=== PATIENT | male | born 1935 | race Caucasian/White ===

== ENCOUNTER 2018-09-26 12:28 | Inpatient (IN) | payer BC ==
[2018-09-26 13:34] LABS: MODE NASAL CANNULA; MetHgb Venous 0.5 %; Sample Type Blood venous; Site VENOUS LINE; Venous Fraction OxyHgb 69.2 %; Venous Oxygen Sat 70.3 mmHG (55.0-75.0); Venous Total Hemglobin 13.9 g/dl
[2018-09-26 13:36] LABS: ADD MAN DIFF? NO
[2018-09-26 13:41] LABS: ABNORMAL IP MESSAGE 1; BASOPHILS % 0.1 % (0.0-2.0); HEMATOCRIT 38.8 % (42.0-52.0); HEMOGLOBIN 12.4 g/dl (14.0-18.0); LYMPHOCYTES # 0.3 10^3/ul (0.8-2.9); LYMPHOCYTES % 2.4 % (15.0-51.0); MEAN CORPUSCULAR HEMOGLOBIN 26.6 pg (29.0-33.0); MEAN CORPUSCULAR VOLUME 83.3 fl (82.0-101.0); MEAN PLATELET VOLUME 9.8 fl (7.4-10.4); MONOCYTE # 0.2 10^3/ul (0.3-0.9); MONOCYTES % 1.2 % (0.0-11.0); NEUTROPHIL # 13.7 10^3/ul (1.6-7.5); NEUTROPHILS % 95.6 % (39.0-77.0); NUCLEATED RED BLOOD CELLS% 0.1 /100WBC (0.0-0.0); PLATELET COUNT 366 10^3/UL (140-415); POSITIVE DIFF @See below; RED BLOOD COUNT 4.66 10^6/ul (4.70-6.10); RED CELL DISTRIBUTION WIDTH 15.3 % (11.5-14.5)
[2018-09-26 13:41] LABS: WHITE BLOOD COUNT 14.4 10^3/ul (4.8-10.8)
[2018-09-26 13:54] LABS: ANION GAP 12 (5-13); BLOOD UREA NITROGEN 46 mg/dl (7-20); CALCIUM 8.6 mg/dl (8.4-10.2); CARBON DIOXIDE 20 mmol/L (21-31); CHLORIDE 94 mmol/L (97-110); CREATININE 1.98 mg/dl (0.61-1.24); GLUCOSE 217 mg/dl (70-220); POTASSIUM 5.5 mmol/L (3.5-5.1); SODIUM 126 mmol/L (135-144)
[2018-09-26 13:56] LABS: INR 0.99; PROTIME 13.2 Sec (11.9-14.9)
[2018-09-26 13:57] LABS: PARTIAL THROMBOPLASTIN TIME 29.2 Sec (23.0-35.0)
[2018-09-26 14:06] LABS: B-TYPE NATRIURETIC PEPTIDE 2870 PG/ML (0-450); TROPONIN-I 0.035 ng/ml (0.000-0.120)
[2018-09-26] MEDS: LEVOFLOXACIN 750MG/D5W (PMX) 150 ML IVPB (15:04)
[2018-09-26] MEDS: ALBUTEROL 0.5% (NEB) 2.5 MG/0.5 ML AMP INH (15:47)
[2018-09-26] MEDS: IPRATROPIUM (NEB) 0.5 MG/2.5 ML AMP INH (15:48)
[2018-09-26] MEDS ORDERED: ONDANSETRON 4 MG INJ IV ×2 (16:00→18:30)
[2018-09-26] MEDS ORDERED: ACETAMINOPHEN 325 MG TAB PO ×2 (16:00→18:30)
[2018-09-26] MEDS ORDERED: BISACODYL (EC) 5 MG TAB PO (18:30)
[2018-09-26] MEDS ORDERED: DOCUSATE SODIUM 100 MG CAP PO (18:30)
[2018-09-26] MEDS ORDERED: morphine 2 MG INJ IV (18:30)
[2018-09-26] MEDS ORDERED: NACL 0.9% 3 ML SYG IV (18:30)
[2018-09-26] MEDS ORDERED: VANCOMYCIN IV PER PHARMACY XX ×2 (19:00→20:30)
[2018-09-26] MEDS ORDERED: GUAIFENESIN/DM 5ML CUP PO ×2 (19:00→20:30)
[2018-09-26] MEDS: HYDROCODONE/APAP (5/325) TAB PO (19:12)
[2018-09-26] MEDS: MAGNESIUM SULFATE 2 GM/50 ML 50 ML IVPB (20:30)
[2018-09-26] MEDS ORDERED: CEFTRIAXONE 2 GM/50 ML (PMX) 50 ML IVPB (20:30)
[2018-09-26] MEDS: ALBUTEROL/IPRATROPIUM (NEB) 3 ML AMP HHN (20:30)
[2018-09-26] MEDS ORDERED: DEXTROSE 50% 50 ML SYRINGE IV ×2 (21:00)
[2018-09-26] MEDS: INSULIN ASPART [NOVOLOG] 3 ML PEN SC (21:00)
[2018-09-26] MEDS ORDERED: GLUCAGON 1 MG INJ IM (21:00)
[2018-09-26] MEDS ORDERED: GLUCOSE GEL 15 GRAM TUBE PO ×2 (21:00)
[2018-09-26] MEDS ORDERED: GLUCOSE GEL 15 GRAM TUBE BUCCAL (21:00)
[2018-09-26 21:32] LABS: URIC ACID 7.5 mg/dl (3.1-7.9)
[2018-09-26] MEDS: METHYLPREDNISOLONE 40 MG INJ IM (22:38)
[2018-09-26] MEDS: ATORVASTATIN 80 MG TAB PO (22:39)
[2018-09-26] MEDS: FAMOTIDINE 20 MG TAB PO (22:39)
[2018-09-26] MEDS: VANCOMYCIN 1.25 GM IN 0.9 % SOD CHLORIDE 250 ML IVPB (22:39)
[2018-09-26] MEDS: SOD CHLORIDE 0.9% 1,000 ML IV (22:39)
[2018-09-26] MEDS: METOPROLOL 25 MG TAB PO (22:40)
[2018-09-26 22:42] LABS: OSMOLALITY 282 mOsm/kg (280-295)
[2018-09-26] MEDS ORDERED: AZTREONAM 2 GM in SOD CHLORIDE 0.9% 100 ML IVPB (23:00)
[2018-09-26] MEDS ORDERED: ALBUTEROL/IPRATROPIUM (NEB) 3 ML AMP HHN (23:00)
[2018-09-26] MEDS: IPRATROPIUM (NEB) 0.5 MG/2.5 ML AMP HHN (23:43)
[2018-09-27] MEDS ORDERED: AZTREONAM 2 GM in SOD CHLORIDE 0.9% 100 ML IVPB
[2018-09-27 01:14] LABS: PROCALCITONIN 0.75 ng/mL (0.00-0.10)
[2018-09-27] MEDS: NPH, HUMAN INSULIN ISOPHANE 3ML VIAL SC (01:48)
[2018-09-27] MEDS: ACCU-CHEK XX (02:00)
[2018-09-27] MEDS: SOD CHLORIDE 0.9% 1,000 ML IV (04:31)
[2018-09-27] MEDS: ZOLPIDEM 5 MG TAB PO ×2 (05:39→22:40)
[2018-09-27] MEDS: METHYLPREDNISOLONE 125 MG INJ IV (06:03)
[2018-09-27] MEDS: INSULIN ASPART [NOVOLOG] 3 ML PEN SC ×7 (06:26→21:00)
[2018-09-27 07:03] LABS: ADD MAN DIFF? NO
[2018-09-27 07:06] LABS: WHITE BLOOD COUNT 17.6 10^3/ul (4.8-10.8)
[2018-09-27 07:06] LABS: ABNORMAL IP MESSAGE 1; BASOPHILS % 0.1 % (0.0-2.0); HEMATOCRIT 35.5 % (42.0-52.0); HEMOGLOBIN 11.4 g/dl (14.0-18.0); LYMPHOCYTES # 0.4 10^3/ul (0.8-2.9); LYMPHOCYTES % 2.1 % (15.0-51.0); MEAN CORPUSCULAR HEMOGLOBIN 26.3 pg (29.0-33.0); MEAN CORPUSCULAR HGB CONC 32.1 g/dl (32.0-37.0); MEAN PLATELET VOLUME 9.4 fl (7.4-10.4); MONOCYTE # 0.5 10^3/ul (0.3-0.9); MONOCYTES % 2.8 % (0.0-11.0); NEUTROPHIL # 16.6 10^3/ul (1.6-7.5); NEUTROPHILS % 94.4 % (39.0-77.0); PLATELET COUNT 354 10^3/UL (140-415); POSITIVE DIFF @See below; RED BLOOD COUNT 4.33 10^6/ul (4.70-6.10); RED CELL DISTRIBUTION WIDTH 14.8 % (11.5-14.5)
[2018-09-27 07:26] LABS: HEMOGLOBIN A1C 6.4 % (0-5.9)
[2018-09-27 07:32] LABS: ALANINE AMINOTRANSFERASE 29 IU/L (13-69); ALBUMIN 2.8 g/dl (3.3-4.9); ALBUMIN/GLOBULIN RATIO 0.93; ALKALINE PHOSPHATASE 54 IU/L (42-121); ANION GAP 8 (5-13); ASPARTATE AMINO TRANSFERASE 20 IU/L (15-46); BILIRUBIN,INDIRECT 0.5 mg/dl (0-1.1); BILIRUBIN,TOTAL 0.5 mg/dl (0.2-1.3); BLOOD UREA NITROGEN 45 mg/dl (7-20); CARBON DIOXIDE 20 mmol/L (21-31); CHLORIDE 100 mmol/L (97-110); CREATININE 1.67 mg/dl (0.61-1.24); GLUCOSE 183 mg/dl (70-220); MAGNESIUM 2.6 mg/dl (1.7-2.5); PHOSPHORUS 3.6 mg/dl (2.5-4.9); POTASSIUM 5.1 mmol/L (3.5-5.1); SODIUM 128 mmol/L (135-144); TOTAL PROTEIN 5.8 g/dl (6.1-8.1)
[2018-09-27 07:37] LABS: TROPONIN-I 0.044 ng/ml (0.000-0.120)
[2018-09-27] MEDS ORDERED: predniSONE 50 MG TAB PO (09:00)
[2018-09-27] MEDS: ENOXAPARIN 30 MG/0.3 ML SYG SC (09:00)
[2018-09-27] MEDS ORDERED: CEFTRIAXONE 2 GM/50 ML (PMX) 50 ML IVPB (09:00)
[2018-09-27] MEDS: CLOPIDOGREL 75 MG TAB PO (09:22)
[2018-09-27] MEDS: AZTREONAM 1 GM/NS (PMX) 50 ML IVPB ×3 (09:22→21:16)
[2018-09-27] MEDS: TAMSULOSIN (SR) 0.4 MG CAP PO (09:23)
[2018-09-27] MEDS: METOPROLOL 25 MG TAB PO ×2 (09:24→21:00)
[2018-09-27] MEDS: IPRATROPIUM (NEB) 0.5 MG/2.5 ML AMP HHN ×2 (09:37→14:40)
[2018-09-27 10:23] LABS: OSMOLALITY,URINE 455 mOsm/kg (250-1200)
[2018-09-27] MEDS: FUROSEMIDE 40 MG INJ IV (12:45)
[2018-09-27] MEDS ORDERED: METHYLPREDNISOLONE 40 MG INJ IV (14:00)
[2018-09-27] MEDS: ALBUTEROL/IPRATROPIUM (NEB) 3 ML AMP HHN ×3 (14:40→20:32)
[2018-09-27] MEDS: METHYLPREDNISOLONE 40 MG INJ IV (14:46)
[2018-09-27] MEDS: AMLODIPINE 10 MG TAB PO (14:47)
[2018-09-27] MEDS: AZITHROMYCIN 500MG/NS (PMX) 250 ML IVPB (14:47)
[2018-09-27] MEDS: hydrALAzine 20 MG INJ IV (16:17)
[2018-09-27] MEDS: FAMOTIDINE 20 MG TAB PO (21:00)
[2018-09-27] MEDS: ATORVASTATIN 80 MG TAB PO (21:00)
[2018-09-27] MEDS: INSULIN GLARGINE [LANTus] (100 UNITS/ML) SYG SC (21:44)
[2018-09-27] MEDS: INSULIN ASP PROT/ASPART (70/30) PEN SC (21:45)
[2018-09-28] MEDS: ALBUTEROL/IPRATROPIUM (NEB) 3 ML AMP HHN ×5 (00:33→16:09)
[2018-09-28] MEDS: ACCU-CHEK XX (02:00)
[2018-09-28] MEDS: METHYLPREDNISOLONE 40 MG INJ IV ×2 (02:32→13:24)
[2018-09-28 07:16] LABS: ADD MAN DIFF? NO
[2018-09-28 07:23] LABS: WHITE BLOOD COUNT 16.3 10^3/ul (4.8-10.8)
[2018-09-28 07:23] LABS: ABNORMAL IP MESSAGE 1; BASOPHILS % 0.1 % (0.0-2.0); HEMATOCRIT 38.7 % (42.0-52.0); HEMOGLOBIN 12.5 g/dl (14.0-18.0); LYMPHOCYTES # 0.4 10^3/ul (0.8-2.9); LYMPHOCYTES % 2.4 % (15.0-51.0); MEAN CORPUSCULAR HEMOGLOBIN 26.5 pg (29.0-33.0); MEAN CORPUSCULAR HGB CONC 32.3 g/dl (32.0-37.0); MEAN PLATELET VOLUME 9.2 fl (7.4-10.4); MONOCYTE # 0.7 10^3/ul (0.3-0.9); MONOCYTES % 4.4 % (0.0-11.0); NEUTROPHILS % 92.3 % (39.0-77.0); NUCLEATED RED BLOOD CELLS # 0.1 10^3/ul (0.0-0.0); NUCLEATED RED BLOOD CELLS% 0.4 /100WBC (0.0-0.0); PLATELET COUNT 461 10^3/UL (140-415); POSITIVE DIFF @See below; RED BLOOD COUNT 4.72 10^6/ul (4.70-6.10); RED CELL DISTRIBUTION WIDTH 15.3 % (11.5-14.5)
[2018-09-28 07:42] LABS: ANION GAP 14 (5-13); BLOOD UREA NITROGEN 44 mg/dl (7-20); CALCIUM 8.6 mg/dl (8.4-10.2); CARBON DIOXIDE 22 mmol/L (21-31); CHLORIDE 94 mmol/L (97-110); GLUCOSE 187 mg/dl (70-220); MAGNESIUM 2.3 mg/dl (1.7-2.5); POTASSIUM 4.6 mmol/L (3.5-5.1); SODIUM 130 mmol/L (135-144)
[2018-09-28] MEDS: INSULIN ASPART [NOVOLOG] 3 ML PEN SC ×4 (07:48→11:52)
[2018-09-28] MEDS: INSULIN ASP PROT/ASPART (70/30) PEN SC (08:03)
[2018-09-28] MEDS: AZTREONAM 1 GM/NS (PMX) 50 ML IVPB (08:12)
[2018-09-28] MEDS: CLOPIDOGREL 75 MG TAB PO (08:12)
[2018-09-28] MEDS: METOPROLOL 25 MG TAB PO (08:13)
[2018-09-28] MEDS: TAMSULOSIN (SR) 0.4 MG CAP PO (08:13)
[2018-09-28] MEDS: AMLODIPINE 10 MG TAB PO (08:13)
[2018-09-28] MEDS: ENOXAPARIN 30 MG/0.3 ML SYG SC (08:23)
[2018-09-28] MEDS: IPRATROPIUM (NEB) 0.5 MG/2.5 ML AMP HHN ×2 (08:50)
[2018-09-28 10:23] LABS: AADO2 Arterial 84.1 mmHg (7.0-24.0); Allen Test ACCEPTAB; Arterial Base Excess -4.7 mmol/L (-3.0-3); Arterial Blood Gas Oxygen Sat 95.8 mmHG (95.0-100.0); Arterial COHb 0.3 % (0.0-3.0); Arterial Fraction of Oxyhgb 95.1 % (93.0-99.0); Arterial HCO3 18.3 mmol/L (22.0-26.0); Arterial MetHb 0.4 % (0.0-1.5); Arterial pCO2 28.1 mmhg (35-45); MODE NASAL CANNULA; Site Left Radial
[2018-09-28] MEDS: AZITHROMYCIN 500MG/NS (PMX) 250 ML IVPB (13:24)
[2018-09-28 16:36] LABS: ADD UMIC YES; UR ASCORBIC ACID NEGATIVE (NEGATIVE); UR BILIRUBIN (Dip) NEGATIVE (NEGATIVE); UR BLOOD (Dip) NEGATIVE (NEGATIVE); UR CLARITY CLEAR (CLEAR); UR COLOR YELLOW (YELLOW); UR GLUCOSE (Dip) 1+ mg/dL (NEGATIVE); UR KETONES (Dip) NEGATIVE (NEGATIVE); UR LEUKOCYTE ESTERASE (Dip) NEGATIVE Leu/ul (NEGATIVE); UR NITRITE (Dip) NEGATIVE (NEGATIVE); UR RBC 0 /HPF (0-5); UR SPECIFIC GRAVITY (Dip) 1.014 (1.003-1.030); UR TOTAL PROTEIN (Dip) 2+ mg/dl (NEGATIVE); UR UROBILINOGEN (Dip) NEGATIVE (NEGATIVE); UR WBC 1 /HPF (0-5)
[2018-09-28 16:42] LABS: CREATININE,URINE RANDOM 66.16 mg/dl (20-370)
[2018-09-28 16:42] LABS: SODIUM,URINE RANDOM 36 mmol/L (30-90)
[2018-09-28 16:50] LABS: OSMOLALITY,URINE 472 mOsm/kg (250-1200)
[2018-09-30 15:32] LABS: CREATININE, RANDOM URINE 71 mg/dL (20-320); MICROALBUMIN 26.4 mg/dL; MICROALBUMIN/CREATININE RATIO 372 (<30)
== END 2018-09-28 16:52 | disposition home health service (06) | DRG 871 ==
LOC: E/R 12:28 → 6WM 15:31 → TEL 20:30
PROC: 3E0F7GC Introduction of Other Therapeutic Substance into Respiratory Tract, Via Natural or Artificial Opening (ICD-10-PCS; principal; 2018-09-26)
DX: A41.9 Sepsis, unspecified organism (principal); J18.9 Pneumonia, unspecified organism; J96.01 Acute respiratory failure with hypoxia; N17.9 Acute kidney failure, unspecified; E22.2 Syndrome of inappropriate secretion of antidiuretic hormone; I13.0 Hypertensive heart and chronic kidney disease with heart failure and stage 1 through stage 4 chronic kidney disease, or unspecified chronic kidney disease; J44.1 Chronic obstructive pulmonary disease with (acute) exacerbation; E11.65 Type 2 diabetes mellitus with hyperglycemia; E88.81 Metabolic syndrome and other insulin resistance; I50.9 Heart failure, unspecified; E87.5 Hyperkalemia; D50.9 Iron deficiency anemia, unspecified; J44.9 Chronic obstructive pulmonary disease, unspecified; E86.0 Dehydration; I25.10 Atherosclerotic heart disease of native coronary artery without angina pectoris; N18.9 Chronic kidney disease, unspecified; E78.5 Hyperlipidemia, unspecified; N40.0 Benign prostatic hyperplasia without lower urinary tract symptoms; Z79.4 Long term (current) use of insulin; Z79.02 Long term (current) use of antithrombotics/antiplatelets; Z87.891 Personal history of nicotine dependence; Z95.5 Presence of coronary angioplasty implant and graft
CPT/HCPCS: 36415; 36600; 71045; 71250; 80048; 80053; 81001; 81003; 82043; 82803; 82962; 83036; 83605; 83735; 83880; 83930; 83935; 84100; 84145; 84155; 84300; 84443; 84484; 84560; 85025; 85610; 85730; 87070; 89220; 93005; 93306; 93970; 94640; 94644; 94664; 96374; 99285-25